=== PATIENT | female | born 1980 | race Caucasian/White ===

== ENCOUNTER → 2020-10-01 | Outpatient (CLI) | payer OTHER ==
--- NOTE | 2020-10-01 14:50 | CT ---
EXAMINATION TYPE: CT ChestAbdPelvis w con DATE OF EXAM: 10/01/2020 COMPARISON: CT abdomen pelvis 06/07/2015 HISTORY: generalized hyperhidrosis CT DLP: 2651 mGycm Automated exposure control for dose reduction was used. CONTRAST: CT scan of the chest, abdomen and pelvis is performed with Oral Contrast and with IV Contrast, patien t injected with 100 mL of Isovue 300. CT of the chest was somewhat delayed for technical reasons. FINDINGS: LUNGS: The lungs are grossly clear, there is no concerning parenchymal mass or nodule identified. T here is no pleural effusion or pneumothorax seen. The tracheobronchial tree is patent. MEDIASTINUM: There are no greater than 1 cm hilar or mediastinal lymph nodes. No pericardial effusi on is seen. AORTA: No significant abnormality is seen. OTHER: Patient body habitus is increased. LIVER/GB: No significant abnormality is appreciated. PANCREAS: No significant abnormality is seen. SPLEEN: No significant abnormality is seen. ADRENALS: No significant abnormality is seen. KIDNEYS: No significant abnormality is seen. REPRODUCTIVE ORGANS: Left ovarian cyst measures 19 mm BOWEL: No significant abnormality is seen. FREE AIR: No Free Air visible. ASCITES: Minimal free fluid in the cul-de-sac is likely physiologic RETROPERITONEAL ADENOPATHY: No retroperitoneal adenopathy is seen. LYMPH NODES: No greater than 1 cm abdominal or pelvic lymph nodes are appreciated. URINARY BLADDER: No significant abnormality is seen. PELVIC ADENOPATHY: None visualized. OSSEOUS STRUCTURES: No significant abnormality is seen. IMPRESSION: Patient shows enlarged body habitus. No other significant abnormality evident to account for patient's symptoms.
== END | disposition home or self-care (01) ==
LOC: RADCTMAIN 11:03
PROVIDERS: ATTEND Family Medicine
DX: R61 Generalized hyperhidrosis (principal)
CPT/HCPCS: 71260; 74177; Q9967

== ENCOUNTER → 2020-11-24 | Outpatient (CLI) | payer OTHER ==
--- NOTE | 2020-11-24 16:04 | US ---
EXAMINATION TYPE: US abdomen limited DATE OF EXAM: 11/24/2020 COMPARISON: 06/04/2015 CLINICAL HISTORY: 40-year-old female R10.11 RUQ PAIN,K82.8 DISEASE OF GALLBLADDER. RUQ pain, bloating TECHNIQUE: Multiple sonographic images of the right upper quadrant are obtained. FINDINGS: EXAM MEASUREMENTS: Liver Length: 16.4 cm Gallbladder Wall: 0.2 cm CBD: 5.9 mm (versus 4 mm on 06/04/2015) Right Kidney: 11.6 x 4.5 x 4.2 cm Pancreas: Only portions of the pancreatic head and neck are seen. Remainder is obscured by bowel gas shadowing. Liver: Limited intercostal imaging due to gas. Gallbladder: wnl Evidence for sonographic Ramos's sign: YES CBD: Borderline dilated. Right Kidney: No hydronephrosis. IMPRESSION: 1. Limited views of the pancreas. Limited, intercostal windows of the liver. 2. No gallstones or ancillary findings of acute cholecystitis. 3. However, sonographic Ramos sign is reportedly positive. This may reflect referred pain. If furthe r imaging assessment of the gallbladder is desired, HIDA scan can be considered. 4. Bile duct is borderline dilated at 5.9 mm. Correlate with alkaline phosphatase and bilirubin level s to exclude early biliary obstruction.
== END | disposition home or self-care (01) ==
LOC: RADUSWWP 13:55
PROVIDERS: ATTEND Family Medicine
DX: R10.11 Right upper quadrant pain (principal); K82.8 Other specified diseases of gallbladder
CPT/HCPCS: 76705

== ENCOUNTER → 2020-11-27 | Outpatient (CLI) | payer OTHER ==
--- NOTE | 2020-11-27 15:19 | NM ---
EXAMINATION TYPE: NM hepatobiliary w EF DATE OF EXAM: 11/27/2020 COMPARISON: Ultrasound abdomen limited 3 days ago. HISTORY: Right upper quadrant pain and prior abnormal study. Patient has symptoms of diminished appet ite heartburn and reflux also. TECHNIQUE: After the intravenous administration of 4.1 mCi Tc 99m Mebrofenin hepatobiliary scintigrap hy is performed. Immediate images post injection. FINDINGS: There is satisfactory initial accumulation of tracer by the liver. The gallbladder is visualized wit hin 8 minutes. The small bowel activity is noted within 30 minutes. At one hour 8 ounces of oral en sure plus is given to mimic CCK and gallbladder ejection fraction is calculated at 94 %, not diminish ed from the normal range. Therefore there is no scintigraphic evidence of cystic or common bile duct obstruction to suggest acute cholecystitis or gallbladder dyskinesia. IMPRESSION: Ejection fraction is 94%, some consider this abnormal or a hyperkinetic response.
== END | disposition home or self-care (01) ==
LOC: RADNMMAIN 13:03
PROVIDERS: ATTEND Family Medicine
DX: R93.5 Abnormal findings on diagnostic imaging of other abdominal regions, including retroperitoneum (principal)
CPT/HCPCS: 78226; A9537

== ENCOUNTER 2020-11-28 12:17 | Emergency (ER) | payer OTHER ==
[2020-11-28 12:40] VITALS: RESP 20; TEMP 98.6
[2020-11-28 16:21] VITALS: BP 113/78; PULSE 85
[2020-11-28] MEDS ORDERED: MAG HYDROX/AL HYDROX/SIMETH 30 ML, HYOSCYAMINE ELIXIR 10 ML, LIDOCAINE VISCOUS 2% 10 ML PO STA ×3 (16:27)
[2020-11-28] MEDS ORDERED: KETOROLAC 15 MG/ML 1 ML VIAL IVP STA (16:27)
[2020-11-28] MEDS ORDERED: SODIUM CHLORIDE 0.9% 1,000 ML IV STA (16:27)
[2020-11-28 16:36] LABS: Basophils # (A) 0.1 k/uL (0-0.2); Basophils % (A) 1 %; Eosinophils # (A) 0.2 k/uL (0-0.7); Eosinophils % (A) 2 %; HCT 41.7 % (34.0-46.0); Lymphocytes % (A) 20 %; MCH 26.9 pg (25.0-35.0); MCHC 31.2 g/dL (31.0-37.0); MCV 86.2 fL (80.0-100.0); Mean Platelet Volume 7.7; Monocytes # (A) 0.4 k/uL (0-1.0); Monocytes % (A) 4 %; Neutrophils # (A) 7.3 k/uL (1.3-7.7); Neutrophils % (A) 74 %; Platelet Count 378 k/uL (150-450); RBC 4.84 m/uL (3.80-5.40); RDW 12.9 % (11.5-15.5)
[2020-11-28 16:45] LABS: ALT 13 U/L (4-34); AST 19 U/L (14-36); African American GFR (CKD) >90 (>60 ml/min/1.73 sqM); Albumin 4.6 g/dL (3.5-5.0); Alkaline Phosphatase 87 U/L (38-126); Anion Gap 10 mmol/L; Blood Urea Nitrogen 13 mg/dL (7-17); Calcium 9.5 mg/dL (8.4-10.2); Carbon Dioxide 26 mmol/L (22-30); Chloride 102 mmol/L (98-107); Glucose 97 mg/dL (74-99); Lipase 49 U/L (23-300); Non-African American GFR(CKD) >90 (>60 ml/min/1.73 sqM); Sodium 138 mmol/L (137-145); Total Bilirubin 0.4 mg/dL (0.2-1.3); Total Protein 8.3 g/dL (6.3-8.2)
--- NOTE | 2020-11-28 16:54 | ED ---
Abdominal Pain HPI - General Chief Complaint: Abdominal Pain Stated Complaint: abd pain Time Seen by Provider: 11/28/20 16:09 Source: patient, RN notes reviewed, old records reviewed Mode of arrival: ambulatory Limitations: no limitations - History of Present Illness Initial Comments: Patient is a 40-year-old female presenting to emergency Department with complaints of abdominal pain for the past week. She did go to her primary care's office on Tuesday, he ordered an outpatient ultrasound of the gallbladder which showed no signs of gallstones or findings of acute cholecystitis, they did recommend a HIDA scan, bile duct is borderline dilated at 5.9 mm. He then had a HIDA scan performed yesterday, no acute process was seen. States for the past w [place] she has been having right upper quadrant discomfort, bloating, nausea. She describes some radiation across the upper abdomen, rated a 6/10 currently. She is not been able to eat today secondary to her discomfort. She was told the next up with a follow-up with a GI doctor. She denies any history of abdominal surgeries. She denies any fevers or chills, no vomiting, no diarrhea, bowel movements have been normal. She denies any and , no dysuria. She has no further complaints at this time. Her vital signs are stable upon arrival. - Related Data Home Medications Medication Instructions Recorded Confirmed Escitalopram [Lexapro] 20 mg PO DAILY 12/07/19 11/28/20 Fluticasone/Vilanterol [Breo 1 puff INHALATION RT-DAILY 11/28/20 11/28/20 Ellipta 200-25 Mcg Inhaler] Omeprazole 40 mg PO DAILY 11/28/20 11/28/20 buPROPion XL [Wellbutrin XL] 150 mg PO DAILY 11/28/20 11/28/20 Allergies Allergy/AdvReac Type Severity Reaction Status Date / Time No Known Allergies Allergy Verified 11/28/20 17:35 Review of Systems ROS Statement: Those systems with pertinent positive or pertinent negative responses have been documented in the HPI. ROS Other: All systems not noted in ROS Statement are negative. Past Medical History Past Medical History: Asthma, GERD/Reflux Additional Past Medical History / Comment(s): kidney stones. Iron deficient anemia. Hx of Hyperkinetic Gallbladder History of Any Multi-Drug Resistant Organisms: None Reported Past Surgical History: Orthopedic Surgery Additional Past Surgical History / Comment(s): biopsy breasts. Right knee meniscus repair. Kidney stone lithotripsy Past Psychological History: Anxiety, Depression Smoking Status: Never smoker Past Alcohol Use History: Occasional Past Drug Use History: None Reported General Exam - General Exam Comments Initial Comments: GENERAL: Patient is well-developed and well-nourished. Patient is nontoxic and in no acute distress. HEAD: Atraumatic, normocephalic. EYES: Pupils equal round and reactive to light, extraocular movements intact, sclera anicteric, conjunctiva are normal. Eyelids were unremarkable. ENT: Nares patent, oropharynx clear without exudates. Moist mucous membranes. NECK: Normal range of motion, supple without lymphadenopathy or JVD. LUNGS: Unlabored respirations. Breath sounds clear to auscultation bilaterally and equal. No wheezes rales or rhonchi. HEART: Regular rate and rhythm without murmurs, rubs or gallops. ABDOMEN: Soft, tender to palpation of right upper quadrant, normoactive bowel sounds. No guarding, no rebound. No masses appreciated. : Deferred MUSCULOSKELETAL: Normal extremities with adequate strength and normal range of motion, no pitting or edema. No clubbing or cyanosis. NEUROLOGICAL: Patient is alert and oriented x 3. Motor and sensory are also intact. Cranial nerves II through XII grossly intact. Symmetrical smile. Normal speech, normal gait. PSYCH: Normal mood, normal affect. SKIN: Warm, Dry, normal turgor, no rashes or lesions noted. Limitations: no limitations Course Vital Signs 11/28/20 11/28/20 12:38 16:18 Temperature 98.6 F Pulse Rate 75 85 Respiratory 20 20 Rate Blood Pressure 124/79 113/78 O2 Sat by Pulse 100 100 Oximetry Medical Decision Making - Medical Decision Making Patient is a 40-year-old female here with right upper quadrant pain over the past 1 week. She had outpatient ultrasound the gallbladder as well as HIDA scan yesterday, showing no signs of gallstones or acute cervical cholecystitis. She did have outpatient labs were were not able to review those. Her vitals are stable, no fevers. No history of abdominal surgeries. Patient's labs today are unremarkable. Patient went to the bathroom just before she was brought back, she was unable to urine sample but states she has no signs of a UTI. Patient was given fluids, pain control, reports parameters symptoms. Discussed with patient her findings. She can follow up with surgery. She is agreeable to this. Return parameters were discussed with her and she verbalized understanding. Case discussed with Dr. Chambers. - Lab Data Result diagrams: 11/28/20 16:29 11/28/20 16:29 Lab Results 11/28/20 11/28/20 Range/Units 16:29 16:29 WBC 10.0 (3.8-10.6) k/uL RBC 4.84 (3.80-5.40) m/uL Hgb 13.0 (11.4-16.0) gm/dL Hct 41.7 (34.0-46.0) % MCV 86.2 (80.0-100.0) fL MCH 26.9 (25.0-35.0) pg MCHC 31.2 (31.0-37.0) g/dL RDW 12.9 (11.5-15.5) % Plt Count 378 (150-450) k/uL MPV 7.7 Neutrophils % 74 % Lymphocytes % 20 % Monocytes % 4 % Eosinophils % 2 % Basophils % 1 % Neutrophils # 7.3 (1.3-7.7) k/uL Lymphocytes # 2.0 (1.0-4.8) k/uL Monocytes # 0.4 (0-1.0) k/uL Eosinophils # 0.2 (0-0.7) k/uL Basophils # 0.1 (0-0.2) k/uL Sodium 138 (137-145) mmol/L Potassium 4.0 (3.5-5.1) mmol/L Chloride 102 (98-107) mmol/L Carbon Dioxide 26 (22-30) mmol/L Anion Gap 10 mmol/L BUN 13 (7-17) mg/dL Creatinine 0.70 (0.52-1.04) mg/dL Est GFR (CKD-EPI)AfAm >90 (>60 ml/min/1.73 sqM) Est GFR (CKD-EPI)NonAf >90 (>60 ml/min/1.73 sqM) Glucose 97 (74-99) mg/dL Calcium 9.5 (8.4-10.2) mg/dL Total Bilirubin 0.4 (0.2-1.3) mg/dL AST 19 (14-36) U/L ALT 13 (4-34) U/L Alkaline Phosphatase 87 (38-126) U/L Total Protein 8.3 H (6.3-8.2) g/dL Albumin 4.6 (3.5-5.0) g/dL Lipase 49 (23-300) U/L Disposition Clinical Impression: Abdominal pain Disposition: HOME SELF-CARE Condition: Stable Instructions (If sedation given, give patient instructions): Biliary Colic (ED) Additional Instructions: Please return to the Emergency Department if symptoms worsen or any other concerns. Recommend Tylenol or Motrin for any discomfort. May try Maalox. Follow-up with surgery as discussed. Is patient prescribed a controlled substance at d/c from ED?: No Referrals: Roderick Walters III, MD [Primary Care Provider] - 1-[address] DO [Doctor of Osteopathic Medicine] - 1-2 days Time of Disposition: 17:45
== END 2020-11-28 18:05 | disposition home or self-care (01) ==
LOC: EC 12:17
DX: R10.11 Right upper quadrant pain (principal); K21.9 Gastro-esophageal reflux disease without esophagitis; J45.909 Unspecified asthma, uncomplicated; Z79.899 Other long term (current) drug therapy; Z87.442 Personal history of urinary calculi; Z79.51 Long term (current) use of inhaled steroids
CPT/HCPCS: 36415; 80053; 83690; 85025; 99284; 96374; 96361; J1885

== ENCOUNTER → 2023-03-29 | Outpatient (CLI) | payer OTHER ==
--- NOTE | 2023-03-30 09:34 | MM ---
Reason for Exam: Screening (asymptomatic). Last mammogram was performed 7 year(s) and 5 month(s) ago. Patient History: Menarche at age 13. First Full-Term at age 21. 12/2009, Benign Excisional Biopsy on the right side. 08/07/2014, Benign Core Biopsy on the left side. Paternal aunt had breast cancer, age 49. Paternal aunt had breast cancer, age 40. Maternal aunt had breast cancer. Last menstrual period: 03/03/2023 Risk Values: Sharonda 5 year model risk: 1.5%. NCI Lifetime model risk: 14.3%. Prior Study Comparison: 01/20/2012 Right Diagnostic Mammogram, [facility]. 07/11/2014 Bilateral Diagnostic Mammogram, [facility]. 11/19/2015 Bilateral Diagnostic Mammogram, [facility]. Tissue Density: The breast tissue is heterogeneously dense. This may lower the sensitivity of mammography. Findings: Analyzed By CAD. There is no suspicious group of microcalcifications or new suspicious mass in either breast. Bilateral chronic nodularity stable. Previous wrist biopsy clip noted on the left. Overall Assessment: Benign, BI-RAD 2 Management: Screening Mammogram of both breasts in 1 year. . Patient should continue monthly self-breast exams. A clinical breast exam by your physician is recommended on an annual basis. This exam should not preclude additional follow-up of suspicious palpable abnormalities. Note on Sharonda scores and lifetime risk: 1. A Sharonda score greater than 3% is considered moderate risk. If this is the case, consider specialist referral to assess eligibility for a risk reducing agent. 2. If overall lifetime risk for the development of breast cancer is 20% or higher, the patient may qualify for future screening with alternating mammogram and breast MRI. Electronically signed and approved by: Casey Padilla M.D. Radiologis
== END | disposition home or self-care (01) ==
LOC: RADMAMWWP 16:43
PROVIDERS: ATTEND Family Medicine
DX: Z12.31 Encounter for screening mammogram for malignant neoplasm of breast (principal); Z80.3 Family history of malignant neoplasm of breast
CPT/HCPCS: 77067

== ENCOUNTER → 2023-12-19 | Outpatient (CLI) | payer OTHER ==
--- NOTE | 2023-12-19 16:33 | MM ---
Reason for Exam: Clinical finding. Last screening mammogram was performed 8 month(s) ago. Indicated Problems: Pain of the right side (Focal) for 2 Month(s) : 8-11 oclock. Patient History: Menarche at age 13. First Full-Term at age 21. 12/2009, Benign Excisional Biopsy on the right side. 08/07/2014, Benign Core Biopsy on the left side. Paternal aunt had breast cancer, age 49. Paternal aunt had breast cancer, age 40. Maternal aunt had breast cancer. Last menstrual period: 12/16/2023 Risk Values: Sharonda 5 year model risk: 1.6%. NCI Lifetime model risk: 14.1%. Prior Study Comparison: 07/11/2014 Bilateral Diagnostic Mammogram, [facility]. 11/19/2015 Bilateral Diagnostic Mammogram, [facility]. 03/29/2023 Bilateral MG screening mammo w CAD, [facility]. Tissue Density: Right: There are scattered areas of fibroglandular density. Findings: Analyzed By CAD. There is an asymmetric density especially in the upper-outer quadrant as well as the medial right CC view remain unchanged. Markers at the 8:00 position in the site of patient's breast pain. No significant change from prior exams. Overall Assessment: Incomplete: need additional imaging evaluation, BI-RAD 0 Management: Diagnostic Breast Ultrasound of the right breast. [facility], , 12/19/2023 4:30 PM. Electronically signed and approved by: David Brar M.D. Radiologist
--- NOTE | 2023-12-19 16:38 | USB ---
Reason for Exam: Clinical finding. Patient History: Menarche at age 13. First Full-Term at age 21. 12/2009, Benign Excisional Biopsy on the right side. 08/07/2014, Benign Core Biopsy on the left side. Paternal aunt had breast cancer, age 49. Paternal aunt had breast cancer, age 40. Maternal aunt had breast cancer. Risk Values: Sharonda 5 year model risk: 1.6%. NCI Lifetime model risk: 14.1%. Technique: Method: Targeted. Prior Study Comparison: 07/11/2014 Bilateral Diagnostic Mammogram, [facility]. 11/19/2015 Bilateral Diagnostic Mammogram, [facility]. 03/29/2023 Bilateral MG screening mammo w CAD, [facility]. Findings: The lateral section of the breast of the right breast, the axilla of the right breast and the retroareolar of the right breast were scanned. Targeted ultrasound right breast 8:00 to 11:00 including scanning of the subareolar region and axilla. No solid or cystic lesion. Some uniformly thickened but nonenlarged lymph nodes in the right axilla are likely reactive. Overall Assessment: Benign, BI-RAD 2 Management: Screening Mammogram of both breasts in 4 months. Further clinical management of patient's right breast pain. A clinical breast exam by your physician is recommended on an annual basis and results should be correlated with mammographic findings. This exam should not preclude additional follow-up of suspicious palpable abnormalities. Results were given to the patient verbally at the time of exam. [facility], , 12/19/2023 4:35 PM. Electronically signed and approved by: David Brar M.D. Radiologist
== END | disposition home or self-care (01) ==
LOC: RADMAMWWP 14:41
PROVIDERS: ATTEND Family Medicine
DX: N64.4 Mastodynia
CPT/HCPCS: 77061; 77065